=== PATIENT | female | born 1945 | race Caucasian/White ===

== ENCOUNTER → 2018-12-17 11:26 | Outpatient (CLI) | payer MEDICARE ==
[2011-09-25 12:31] VITALS: BMI 33.6
== END | disposition home or self-care (01) ==
LOC: D.HCCARDIO 11:26
PROVIDERS: ATTEND Internal Medicine Cardiovascular Disease
DX: I25.10 Atherosclerotic heart disease of native coronary artery without angina pectoris (principal)

== ENCOUNTER → 2018-12-17 12:48 | Outpatient (CLI) | payer MEDICARE ==
[2011-09-25 12:31] VITALS: BMI 33.6
== END | disposition home or self-care (01) ==
LOC: D.LABREF 12:48
PROVIDERS: ATTEND Orthopaedic Surgery
DX: M17.0 Bilateral primary osteoarthritis of knee (principal); Z11.8 Encounter for screening for other infectious and parasitic diseases